=== PATIENT | male | born 1960 | race Caucasian/White ===

== ENCOUNTER → 2017-05-06 | Outpatient (CLI) | payer BC, OTHER ==
[2017-05-06 08:00] LABS: ABSOLUTE EOSINOPHILS # (AUTO) 0.2 10^3/uL (0.0-0.6); ABSOLUTE LYMPHOCYTES (AUTO) 1.1 10^3/uL (0.5-4.7); ABSOLUTE MONOCYTES (AUTO) 1.1 10^3/uL (0.1-1.4); ABSOLUTE NEUT (AUTO) 4.8 10^3/uL (1.7-8.2); BASOPHILS % (AUTO) 0.6 % (0-2); EOSINOPHILS % (AUTO) 2.2 % (0-6); HEMATOCRIT 46.5 % (37.9-51.0); HEMOGLOBIN 16.1 g/dL (13.5-17.0); HGB HCT DIFFERENCE 1.8; LYMPHOCYTES % (AUTO) 15.6 % (13-45); MEAN CORPUSCULAR HEMOGLOBIN 31.5 pg (27.0-33.4); MEAN CORPUSCULAR HGB CONC 34.6 g/dL (32.0-36.0); MEAN CORPUSCULAR VOLUME 91 fl (80-97); MONOCYTES % (AUTO) 15.3 % (3-13); RED BLOOD COUNT 5.11 10^6/uL (4.35-5.55); RED CELL DISTRIBUTION WIDTH 12.8 % (11.5-14.0); SEGMENTED NEUTROPHILS % (AUTO) 66.3 % (42-78); WHITE BLOOD COUNT 7.2 10^3/uL (4.0-10.5)
[2017-05-06 08:31] LABS: ALANINE AMINOTRANSFERASE 65 U/L (21-72); ALBUMIN 4.5 g/dL (3.5-5.0); ALKALINE PHOSPHATASE 44 U/L (38-126); ANION GAP 13 (5-19); ASPARTATE AMINO TRANSFERASE 33 U/L (17-59); BILIRUBIN,DIRECT 0.4 mg/dL (0.0-0.4); BILIRUBIN,TOTAL 1.1 mg/dL (0.2-1.3); BLOOD UREA NITROGEN 17 mg/dL (7-20); CALCIUM 9.3 mg/dL (8.4-10.2); CARBON DIOXIDE 28 mmol/L (22-30); CHLORIDE 105 mmol/L (98-107); CHOLESTEROL 210.25 mg/dL (0-200); CREATININE RESULT 1.03 mg/dL (0.52-1.25); Direct HDL 46 mg/dL (>40); GLUCOSE 97 mg/dL (75-110); POTASSIUM 4.7 mmol/L (3.6-5.0); SODIUM 145.9 mmol/L (137-145); TOTAL PROTEIN 6.9 g/dL (6.3-8.2); TRIGLYCERIDES 117 mg/dL (<150)
[2017-05-06 08:43] LABS: DIRECT LDL 155 mg/dL (<100)
== END ==
LOC: OD 07:15
PROVIDERS: ATTEND Internal Medicine
DX: Z00.00 Encounter for general adult medical examination without abnormal findings (principal); E78.5 Hyperlipidemia, unspecified; R53.83 Other fatigue
CPT/HCPCS: 36415; 80053; 80061; 84153; 84402; 84403; 84443; 85025

== ENCOUNTER → 2017-11-04 | Outpatient (CLI) | payer BC ==
[2017-11-04 08:40] LABS: ALANINE AMINOTRANSFERASE 73 U/L (21-72); ALBUMIN 4.7 g/dL (3.5-5.0); ALKALINE PHOSPHATASE 35 U/L (38-126); ASPARTATE AMINO TRANSFERASE 38 U/L (17-59); BILIRUBIN,DIRECT 0.4 mg/dL (0.0-0.4); BILIRUBIN,TOTAL 1.1 mg/dL (0.2-1.3); CHOLESTEROL 168.46 mg/dL (0-200); TOTAL PROTEIN 7.1 g/dL (6.3-8.2); TRIGLYCERIDES 120 mg/dL (<150)
[2017-11-04 08:53] LABS: DIRECT LDL 102 mg/dL (<100)
[2017-11-06 13:47] LABS: TESTOSTERONE FREE (DIRECT) 9.1 pg/mL (7.2-24.0)
== END ==
LOC: OD 07:05
PROVIDERS: ATTEND Internal Medicine
DX: E78.5 Hyperlipidemia, unspecified (principal); E29.1 Testicular hypofunction; G47.33 Obstructive sleep apnea (adult) (pediatric); N31.9 Neuromuscular dysfunction of bladder, unspecified
CPT/HCPCS: 36415; 80061; 80076; 84402; 84403

== ENCOUNTER → 2018-01-07 | Outpatient (CLI) | payer BC | LOC: OD 07:08 | PROVIDERS: ATTEND Internal Medicine | DX: E29.1 Testicular hypofunction (principal) | CPT/HCPCS: 36415; 84403 ==

== ENCOUNTER → 2018-03-18 | Outpatient (CLI) | payer BC | LOC: OD 07:06 | PROVIDERS: ATTEND Internal Medicine | DX: E03.9 Hypothyroidism, unspecified (principal) | CPT/HCPCS: 36415; 84403 ==

== ENCOUNTER → 2018-08-09 | Outpatient (CLI) | payer BC ==
[2018-08-09 08:21] LABS: ABSOLUTE EOSINOPHILS # (AUTO) 0.2 10^3/uL (0.0-0.6); ABSOLUTE LYMPHOCYTES (AUTO) 1.4 10^3/uL (0.5-4.7); ABSOLUTE MONOCYTES (AUTO) 0.6 10^3/uL (0.1-1.4); ABSOLUTE NEUT (AUTO) 4.9 10^3/uL (1.7-8.2); BASOPHILS % (AUTO) 0.5 % (0-2); HEMOGLOBIN 16.7 g/dL (13.5-17.0); LYMPHOCYTES % (AUTO) 19.8 % (13-45); MEAN CORPUSCULAR HEMOGLOBIN 32.3 pg (27.0-33.4); MEAN CORPUSCULAR HGB CONC 34.7 g/dL (32.0-36.0); MEAN CORPUSCULAR VOLUME 93 fl (80-97); MONOCYTES % (AUTO) 8.1 % (3-13); PLATELET COUNT 233 10^3/uL (150-450); RED BLOOD COUNT 5.16 10^6/uL (4.35-5.55); SEGMENTED NEUTROPHILS % (AUTO) 68.6 % (42-78); TOTAL CELLS COUNTED % (AUTO) 100 %; WHITE BLOOD COUNT 7.1 10^3/uL (4.0-10.5)
[2018-08-09 08:41] LABS: ALANINE AMINOTRANSFERASE 70 U/L (21-72); ALBUMIN 4.5 g/dL (3.5-5.0); ALKALINE PHOSPHATASE 40 U/L (38-126); ANION GAP 8 (5-19); ASPARTATE AMINO TRANSFERASE 33 U/L (17-59); BILIRUBIN,DIRECT 0.2 mg/dL (0.0-0.4); BILIRUBIN,TOTAL 0.8 mg/dL (0.2-1.3); BLOOD UREA NITROGEN 21 mg/dL (7-20); CARBON DIOXIDE 29 mmol/L (22-30); CHLORIDE 107 mmol/L (98-107); GLUCOSE 107 mg/dL (75-110); POTASSIUM 4.7 mmol/L (3.6-5.0); SODIUM 143.9 mmol/L (137-145); TRIGLYCERIDES 131 mg/dL (<150)
[2018-08-09 08:52] LABS: DIRECT LDL 119 mg/dL (<100)
== END ==
LOC: OD 07:03
PROVIDERS: ATTEND Internal Medicine
DX: R53.83 Other fatigue (principal); E29.1 Testicular hypofunction; G47.33 Obstructive sleep apnea (adult) (pediatric); E78.5 Hyperlipidemia, unspecified
CPT/HCPCS: 36415; 80053; 80061; 84153; 84403; 84443; 85025

== ENCOUNTER → 2018-09-16 | Outpatient (CLI) | payer BC | LOC: OD 07:05 | PROVIDERS: ATTEND Internal Medicine | DX: E03.9 Hypothyroidism, unspecified (principal) | CPT/HCPCS: 36415; 84443 ==

== ENCOUNTER → 2019-02-08 | Outpatient (CLI) | payer BC ==
[2019-02-08 08:19] LABS: ABSOLUTE EOSINOPHILS # (AUTO) 0.2 10^3/uL (0.0-0.6); ABSOLUTE LYMPHOCYTES (AUTO) 1.4 10^3/uL (0.5-4.7); ABSOLUTE MONOCYTES (AUTO) 0.6 10^3/uL (0.1-1.4); ABSOLUTE NEUT (AUTO) 5.4 10^3/uL (1.7-8.2); BASOPHILS % (AUTO) 0.4 % (0-2); EOSINOPHILS % (AUTO) 3.1 % (0-6); HEMATOCRIT 47.2 % (37.9-51.0); HEMOGLOBIN 16.2 g/dL (13.5-17.0); LYMPHOCYTES % (AUTO) 18.1 % (13-45); MEAN CORPUSCULAR HEMOGLOBIN 31.4 pg (27.0-33.4); MEAN CORPUSCULAR HGB CONC 34.2 g/dL (32.0-36.0); MEAN CORPUSCULAR VOLUME 92 fl (80-97); PLATELET COUNT 219 10^3/uL (150-450); RED BLOOD COUNT 5.14 10^6/uL (4.35-5.55); RED CELL DISTRIBUTION WIDTH 12.7 % (11.5-14.0); SEGMENTED NEUTROPHILS % (AUTO) 70.4 % (42-78); TOTAL CELLS COUNTED % (AUTO) 100 %; WHITE BLOOD COUNT 7.6 10^3/uL (4.0-10.5)
[2019-02-08 08:42] LABS: ALBUMIN 4.3 g/dL (3.5-5.0); ALKALINE PHOSPHATASE 37 U/L (38-126); ANION GAP 8 (5-19); ASPARTATE AMINO TRANSFERASE 35 U/L (17-59); BILIRUBIN,DIRECT 0.3 mg/dL (0.0-0.4); BLOOD UREA NITROGEN 21 mg/dL (7-20); CALCIUM 9.2 mg/dL (8.4-10.2); CARBON DIOXIDE 29 mmol/L (22-30); CHLORIDE 104 mmol/L (98-107); CHOLESTEROL 206.92 mg/dL (0-200); GLUCOSE 97 mg/dL (75-110); POTASSIUM 4.6 mmol/L (3.6-5.0); TOTAL PROTEIN 6.9 g/dL (6.3-8.2); TRIGLYCERIDES 147 mg/dL (<150)
[2019-02-08 08:59] LABS: DIRECT LDL 164 mg/dL (<100)
== END ==
LOC: OD 07:09
PROVIDERS: ATTEND Internal Medicine
DX: E29.1 Testicular hypofunction (principal); E03.9 Hypothyroidism, unspecified
CPT/HCPCS: 36415; 80053; 80061; 84443; 85025

== ENCOUNTER → 2019-05-07 | Outpatient (CLI) | payer BC ==
--- NOTE | 2019-05-07 12:34 | RADIOLOGY REPORT (SQ) ---
EXAM DESCRIPTION: MRI CERVICAL SPINE WITHOUT COMPLETED DATE/TIME: 05/07/2019 8:51 am REASON FOR STUDY: (M54.12)RADICULOPATHY, CERVICAL REGION M54.12 RADICULOPATHY, CERVICAL REGION M50. 20 OTHER CERVICAL DISC DISPLACEMENT, UNSP CERVICAL REGIO COMPARISON: None. TECHNIQUE: Sagittal and Axial imaging includes T1, T2, STIR and gradient echo sequences. LIMITATIONS: None. FINDINGS: ALIGNMENT: Normal. VERTEBRAE: Very subtle grade scratch a very subtle anterolisthesis at C5-6. BONE MARROW: Normal. No marrow replacement or reactive changes. DISCS: Variable signal and height loss with disc osteophyte complexes at C3-4, C5-6 and C6-7 particul andrew. HARDWARE: None in the spine. CORD AND BASE OF BRAIN: Normal in size and signal intensity. SOFT TISSUES: No soft tissue masses. C1-C2: No significant spinal stenosis. C2-C3: No significant spinal stenosis or exit foraminal stenosis. C3-C4: Broad left paracentral disc hernia with associated left uncovertebral spurring. Effacement re gional CSF space but no mass effect on the cord. Marked left foraminal stenosis. C4-C5: Facet arthropathy. No high-grade central stenosis. Mild right and at least moderate left for aminal stenosis. C5-C6: Disc osteophyte complex with cord contact. Very slight flattening. Prominent uncovertebral s purs with bilateral foraminal stenosis. This looks at least moderate on the right and moderate -comfort ed on the left. C6-C7: Broad left disc osteophyte complex without mass effect on the cord. Moderate -marked left for aminal stenosis. C7-T1: No significant spinal stenosis or exit foraminal stenosis. UPPER THORACIC: Incompletely imaged. No significant spinal stenosis or exit foraminal stenosis. OTHER: No other significant finding. IMPRESSION: 1. Cervical spondylosis. Predominantly left-sided foraminal stenosis as above. Changes look most pr onounced at C5-6, with there is minimal listhesis and minimal cord flattening without high-grade sten osis or impingement. TECHNICAL DOCUMENTATION: JOB ID: [id number] [employer]- All Rights Reserved Reading location - IP/workstation name: [email or web address]
== END ==
LOC: RAD 08:12
PROVIDERS: ATTEND Internal Medicine
DX: M54.12 Radiculopathy, cervical region (principal); M50.20 Other cervical disc displacement, unspecified cervical region
CPT/HCPCS: 72141

== ENCOUNTER → 2019-06-29 | Outpatient (CLI) | payer BC ==
--- NOTE | 2019-06-29 16:30 | RADIOLOGY REPORT (SQ) ---
EXAM DESCRIPTION: CERV SP 4 OR 5 VIEWS COMPLETED DATE/TIME: 06/29/2019 3:31 pm REASON FOR STUDY: M50.10 CERVICAL DISC DISORDER W RADICULOPATHY, UNSP CERVICAL REGION M50.10 CERVIC AL DISC DISORDER W RADICULOPATHY, UNSP CERVICAL COMPARISON: None. NUMBER OF VIEWS: Five views. TECHNIQUE: AP, lateral, obliques and odontoid radiographic images acquired of the cervical spine. LIMITATIONS: None. FINDINGS: MINERALIZATION: Normal. ALIGNMENT: Grade 1 anterolisthesis of C5 relative to C6. There is no atlantoaxial dissociation. VERTEBRAE: The cervical vertebral body heights are preserved. There is no fracture. DISCS: The C5-C6 and C6-C7 intervertebral disc spaces are narrowed. FORAMINA: Osteophytic foraminal stenosis bilaterally at C5-C6 due to a combination of facet joint art hropathy and uncovertebral hypertrophy. LATERAL AND POSTERIOR ELEMENTS: Intact. HARDWARE: None in the spine. SOFT TISSUES: No abnormality. OTHER: No other finding. IMPRESSION: Degenerative spondylosis and facet arthropathy of the cervical spine. TECHNICAL DOCUMENTATION: JOB ID: [id number]- All Rights Reserved Reading location - IP/workstation name: [email or web address]
== END ==
LOC: RAD 15:14
PROVIDERS: ATTEND Orthopaedic Surgery
DX: M50.10 Cervical disc disorder with radiculopathy, unspecified cervical region (principal); M47.892 Other spondylosis, cervical region
CPT/HCPCS: 72050

== ENCOUNTER → 2020-02-07 | Outpatient (CLI) | payer BC ==
[2020-02-07 08:18] LABS: ABSOLUTE EOSINOPHILS # (AUTO) 0.2 10^3/uL (0.0-0.6); ABSOLUTE LYMPHOCYTES (AUTO) 1.4 10^3/uL (0.5-4.7); ABSOLUTE MONOCYTES (AUTO) 0.8 10^3/uL (0.1-1.4); ABSOLUTE NEUT (AUTO) 5.2 10^3/uL (1.7-8.2); BASOPHILS % (AUTO) 0.5 % (0-2); EOSINOPHILS % (AUTO) 2.3 % (0-6); HEMATOCRIT 49.2 % (37.9-51.0); HEMOGLOBIN 16.8 g/dL (13.5-17.0); LYMPHOCYTES % (AUTO) 18.1 % (13-45); MEAN CORPUSCULAR HGB CONC 34.2 g/dL (32.0-36.0); MEAN CORPUSCULAR VOLUME 94 fl (80-97); MONOCYTES % (AUTO) 11.1 % (3-13); PLATELET COUNT 238 10^3/uL (150-450); RED BLOOD COUNT 5.26 10^6/uL (4.35-5.55); TOTAL CELLS COUNTED % (AUTO) 100 %; WHITE BLOOD COUNT 7.6 10^3/uL (4.0-10.5)
[2020-02-07 08:27] LABS: ALBUMIN 4.4 g/dL (3.5-5.0); ALKALINE PHOSPHATASE 38 U/L (38-126); ANION GAP 6 (5-19); ASPARTATE AMINO TRANSFERASE 35 U/L (17-59); BILIRUBIN,TOTAL 1.2 mg/dL (0.2-1.3); BLOOD UREA NITROGEN 18 mg/dL (7-20); CALCIUM 9.3 mg/dL (8.4-10.2); CARBON DIOXIDE 29 mmol/L (22-30); CHLORIDE 106 mmol/L (98-107); GLUCOSE 100 mg/dL (75-110); POTASSIUM 4.8 mmol/L (3.6-5.0); TRIGLYCERIDES 129 mg/dL (<150)
[2020-02-07 08:38] LABS: DIRECT LDL 98 mg/dL (<100)
== END ==
LOC: OD 07:06
PROVIDERS: ATTEND Internal Medicine
DX: Z00.00 Encounter for general adult medical examination without abnormal findings (principal)
CPT/HCPCS: 36415; 80053; 80061; 84153; 84443; 85025

== ENCOUNTER → 2020-02-24 | Outpatient (CLI) | payer BC | LOC: OD 07:03 | PROVIDERS: ATTEND Family Medicine | DX: M15.0 Primary generalized (osteo)arthritis (principal); E83.50 Unspecified disorder of calcium metabolism | CPT/HCPCS: 36415; 82306; 85652; 86038; 86431 ==

== ENCOUNTER → 2020-06-20 | Outpatient (CLI) | payer BC ==
[~2020-06-20] MED LIST: COVID-19 VACCINE (PFIZER)/PF 30 MCG/0.3 ML VIAL IM ONE; EPINEPHRINE INJ/PF 1 MG/1 ML AMPULE IM PRN
== END ==
LOC: EMPHEALTH 08:14
PROVIDERS: ATTEND Internal Medicine
DX: Z23 Encounter for immunization (principal)
CPT/HCPCS: 91300

== ENCOUNTER → 2020-07-12 | Outpatient (CLI) | payer BC ==
--- OUTSIDE RECORDS SUMMARY | 2020-07-12 07:40 | XMS REPORT ---
:1960 Author Organization [facility] Address [facility] [address] [place] [address] Care Team Providers Name Role Phone Unavailable Unavailable Unavailable Allergies, Adverse Reactions, Alerts This patient has no known allergies or adverse reactions. Medications Ordered Filled Start Stop Current Ordering Indication Dosage Frequency Signature Comments Components Medication Medication Date Date Medication? Clinician (SIG) Name Name cyclobenzap No 1 Q8H cyclobenza rine 10 mg rory 10 tablet Take mg tablet 1 tablet Take 1 every 8 tablet hours by every 8 oral route hours by as needed. oral route as needed. diclofenac No 1 BID diclofenac sodium 75 sodium 75 mg mg tablet,martine tablet,del yed release ayed Take 1 release tablet Take 1 twice a day tablet by oral twice a route. day by oral route. Tylenol No 2 Q6H Tylenol Extra Extra Strength Strength 500 mg 500 mg tablet Take tablet 2 tablets Take 2 every 6 tablets hours by every 6 oral route. hours by oral route. atorvastati No atorvastat n 20 mg in 20 mg tablet qd tablet qd finasteride No finasterid 5 mg tablet e 5 mg qd tablet qd testosteron No testostero e 20.25 ne 20.25 mg/1.25 mg/1.25 gram (1.62 gram (1.62 %) %) transdermal transderma gel pump qd l gel pump qd gabapentin No 1capsul Q1D gabapentin 300 mg e(s) 300 mg capsule capsule Take 1 Take 1 capsule capsule every day every day by oral by oral route at route at bedtime for bedtime 30 days. for 30 days. ketorolac No 1 Q6H ketorolac 10 mg 10 mg tablet Take tablet 1 tablet Take 1 every 6 tablet hours by every 6 oral route hours by with meals oral route for 5 days. with meals for 5 days. tamsulosin No tamsulosin 0.4 mg 0.4 mg capsule capsule Problems Condition Condition Condition Status Onset Resolution Last Treatin g Comments Name Details Category Date Date Treatment Clinician Date Abnormal Abnormal Problem Active posture Posture 1-29 00:00: 00 Paresthesia Paresthesia Problem Active of upper of Upper -29 limb Limb 00:00: 00 Cervical Cervical Problem Active disc Disc 1-08 prolapse Prolapse 00:00: with with 00 radiculopat Radiculopat hy hy Degeneratio Degeneratio Problem Active n of n of 1-08 cervical Cervical 00:00: interverteb Interverteb 00 ral disc ral Disc Spinal Spinal Problem Active stenosis in Stenosis in 1-08 cervical Cervical 00:00: region Region 00 Neck pain Neck Pain Problem Active 1-08 00:00: 00 Hypogonadis Hypogonadis Problem Active m m Hypercholes Hypercholes Problem Active terolemia terolemia Neurogenic Neurogenic Problem Active bladder Bladder Benign Benign Problem Active prostatic Prostatic hyperplasia Hyperplasia Osteoarthri Osteoarthri Problem Active tis tis Pain in Pain in Problem Active cervical Cervical spine Spine Cervical Cervical Problem Active radiculopat Radiculopat hy hy Sciatica Sciatica Problem Active Sleep apnea Sleep Apnea Problem Active Procedures Procedure Date / Time Performed Performing Clinician Joanna e epidural steroid injection, 2019-12-01 00:00:00 cervical (PROC) epidural steroid injection, 2019-08-30 00:00:00 cervical (PROC) epidural steroid injection, 2019-08-01 00:00:00 cervical (PROC) XR, cervical spine, 4 or 5 view 2019-06-29 00:00:00 Cystoscopy Vasectomy Appendectomy Results This patient has no known results. Assessments Condition Name Status Diagnosis Date Treating Clinici an Neck pain Active 2020-02-06 10:06:58 Chronic pain syndrome Active 2020-02-06 10:11:59 Pain in cervical spine Active 2020-02-06 10:11:59 Cervical radiculopathy Active 2020-02-06 10:11:59 Degeneration of cervical intervertebral Active 10:11:59 disc Spinal stenosis in cervical region Active 2020-02-06 10 :11:59 Chronic pain syndrome Active 2020-01-05 13:29:32 Pain in cervical spine Active 2020-01-05 13:29:32 Cervical radiculopathy Active 2020-01-05 13:29:32 Degeneration of cervical intervertebral Active 13:29:32 disc Neck pain Active 2020-01-05 13:29:32 Spinal stenosis in cervical region Active 2020-01-05 13 :29:32 Chronic pain syndrome Active 2019-12-01 15:45:48 Pain in cervical spine Active 2019-12-01 15:45:48 Cervical radiculopathy Active 2019-12-01 15:45:48 Degeneration of cervical intervertebral Active 15:45:48 disc Neck pain Active 2019-12-01 15:45:48 Spinal stenosis in cervical region Active 2019-12-01 15 :45:48 Pain in cervical spine Active 2019-10-05 11:07:52 Osteoarthritis Active 2019-10-05 11:07:52 Abnormal posture Active 2019-10-05 11:07:54 Cervical radiculopathy Active 2019-10-05 11:07:54 Degeneration of cervical intervertebral Active 11:07:55 disc Neck pain Active 2019-10-05 11:07:57 Spinal stenosis in cervical region Active 2019-10-05 11 :07:57 Paresthesia of upper limb Active 2019-10-05 11:07:59 Paresthesia of upper limb Active 2019-10-05 11:07:59 Cervical disc prolapse with Active 2019-10-05 11:07:49 radiculopathy Pain in cervical spine Active 2019-10-05 11:07:52 Osteoarthritis Active 2019-10-05 11:07:52 Abnormal posture Active 2019-10-05 11:07:54 Cervical radiculopathy Active 2019-10-05 11:07:54 Degeneration of cervical intervertebral Active 11:07:55 disc Neck pain Active 2019-10-05 11:07:57 Spinal stenosis in cervical region Active 2019-10-05 11 :07:57 Cervical disc prolapse with Active 2019-10-05 11:07:49 radiculopathy Cervical radiculopathy Active 2019-09-08 07:22:39 Neck pain Active 2019-09-08 07:22:39 Paresthesia of upper limb Active 2019-09-08 07:22:39 Abnormal posture Active 2019-09-08 07:22:39 Cervical radiculopathy Active 2019-09-08 07:22:39 Neck pain Active 2019-09-08 07:22:39 Paresthesia of upper limb Active 2019-09-08 07:22:39 Abnormal posture Active 2019-09-08 07:22:39 Cervical radiculopathy Active 2019-09-06 07:09:16 Neck pain Active 2019-09-06 07:09:16 Paresthesia of upper limb Active 2019-09-06 07:09:16 Abnormal posture Active 2019-09-06 07:09:16 Cervical radiculopathy Active 2019-09-06 07:09:16 Neck pain Active 2019-09-06 07:09:16 Paresthesia of upper limb Active 2019-09-06 07:09:16 Abnormal posture Active 2019-09-06 07:09:16 Cervical radiculopathy Active 2019-09-01 07:07:26 Neck pain Active 2019-09-01 07:07:26 Paresthesia of upper limb Active 2019-09-01 07:07:26 Abnormal posture Active 2019-09-01 07:07:26 Cervical radiculopathy Active 2019-08-30 07:08:50 Neck pain Active 2019-08-30 07:08:50 Paresthesia of upper limb Active 2019-08-30 07:08:50 Abnormal posture Active 2019-08-30 07:08:51 Chronic pain syndrome Active 2019-08-30 14:57:25 Pain in cervical spine Active 2019-08-30 14:57:25 Cervical radiculopathy Active 2019-08-30 07:08:50 Degeneration of cervical intervertebral Active 14:57:25 disc Neck pain Active 2019-08-30 07:08:50 Spinal stenosis in cervical region Active 2019-08-30 14 :57:25 Paresthesia of upper limb Active 2019-08-30 07:08:50 Abnormal posture Active 2019-08-30 07:08:51 Chronic pain syndrome Active 2019-08-30 14:57:25 Pain in cervical spine Active 2019-08-30 14:57:25 Degeneration of cervical intervertebral Active 14:57:25 disc Spinal stenosis in cervical region Active 2019-08-30 14 :57:25 Cervical radiculopathy Active 2019-08-25 07:37:47 Neck pain Active 2019-08-25 07:37:47 Paresthesia of upper limb Active 2019-08-25 07:37:47 Abnormal posture Active 2019-08-25 07:37:47 Cervical radiculopathy Active 2019-08-25 07:37:47 Neck pain Active 2019-08-25 07:37:47 Paresthesia of upper limb Active 2019-08-25 07:37:47 Abnormal posture Active 2019-08-25 07:37:47 Cervical radiculopathy Active 2019-08-23 07:13:20 Neck pain Active 2019-08-23 07:13:20 Abnormal posture Active 2019-08-23 07:13:20 Paresthesia of upper limb Active 2019-08-23 07:13:20 Cervical radiculopathy Active 2019-08-23 07:13:20 Neck pain Active 2019-08-23 07:13:20 Abnormal posture Active 2019-08-23 07:13:20 Paresthesia of upper limb Active 2019-08-23 07:13:20 Neck pain Active 2019-08-18 07:25:01 Cervical radiculopathy Active 2019-08-18 07:25:01 Abnormal posture Active 2019-08-18 07:25:01 Paresthesia of upper limb Active 2019-08-18 07:25:01 Neck pain Active 2019-08-18 07:25:01 Cervical radiculopathy Active 2019-08-18 07:25:01 Abnormal posture Active 2019-08-18 07:25:01 Paresthesia of upper limb Active 2019-08-18 07:25:01 Neck pain Active 2019-08-16 07:16:29 Cervical radiculopathy Active 2019-08-16 07:16:29 Abnormal posture Active 2019-08-16 07:16:29 Paresthesia of upper limb Active 2019-08-16 07:16:29 Neck pain Active 2019-08-16 07:16:29 Cervical radiculopathy Active 2019-08-16 07:16:29 Abnormal posture Active 2019-08-16 07:16:29 Paresthesia of upper limb Active 2019-08-16 07:16:29 Neck pain Active 2019-08-11 07:35:53 Cervical radiculopathy Active 2019-08-11 07:35:53 Abnormal posture Active 2019-08-11 07:35:53 Paresthesia of upper limb Active 2019-08-11 07:35:53 Neck pain Active 2019-08-11 07:35:53 Cervical radiculopathy Active 2019-08-11 07:35:53 Abnormal posture Active 2019-08-11 07:35:53 Paresthesia of upper limb Active 2019-08-11 07:35:53 Neck pain Active 2019-08-09 07:52:53 Cervical radiculopathy Active 2019-08-09 07:52:53 Abnormal posture Active 2019-08-09 07:52:53 Paresthesia of upper limb Active 2019-08-09 07:52:53 Neck pain Active 2019-08-09 07:52:53 Cervical radiculopathy Active 2019-08-09 07:52:53 Abnormal posture Active 2019-08-09 07:52:53 Paresthesia of upper limb Active 2019-08-09 07:52:53 Neck pain Active 2019-08-04 07:23:08 Cervical radiculopathy Active 2019-08-04 07:23:08 Abnormal posture Active 2019-08-04 07:23:08 Paresthesia of upper limb Active 2019-08-04 07:23:08 Neck pain Active 2019-08-04 07:23:08 Cervical radiculopathy Active 2019-08-04 07:23:08 Abnormal posture Active 2019-08-04 07:23:08 Paresthesia of upper limb Active 2019-08-04 07:23:08 Neck pain Active 2019-08-02 07:46:09 Cervical radiculopathy Active 2019-08-02 07:46:09 Abnormal posture Active 2019-08-02 07:46:09 Paresthesia of upper limb Active 2019-08-02 07:46:09 Neck pain Active 2019-08-02 07:46:09 Cervical radiculopathy Active 2019-08-02 07:46:09 Abnormal posture Active 2019-08-02 07:46:09 Paresthesia of upper limb Active 2019-08-02 07:46:09 Chronic pain syndrome Active 2019-08-01 09:23:38 Pain in cervical spine Active 2019-08-01 09:05:29 Cervical radiculopathy Active 2019-08-01 09:05:29 Degeneration of cervical intervertebral Active 09:05:29 disc Neck pain Active 2019-08-01 09:05:29 Spinal stenosis in cervical region Active 2019-08-01 09 :05:29 Chronic pain syndrome Active 2019-08-01 09:23:38 Pain in cervical spine Active 2019-08-01 09:05:29 Cervical radiculopathy Active 2019-08-01 09:05:29 Degeneration of cervical intervertebral Active 09:05:29 disc Neck pain Active 2019-08-01 09:05:29 Spinal stenosis in cervical region Active 2019-08-01 09 :05:29 Neck pain Active 2019-07-28 07:05:12 Cervical radiculopathy Active 2019-07-28 07:05:12 Abnormal posture Active 2019-07-28 07:05:12 Paresthesia of upper limb Active 2019-07-28 07:05:12 Neck pain Active 2019-07-28 07:05:12 Cervical radiculopathy Active 2019-07-28 07:05:12 Abnormal posture Active 2019-07-28 07:05:12 Paresthesia of upper limb Active 2019-07-28 07:05:12 Neck pain Active 2019-07-26 07:11:08 Cervical radiculopathy Active 2019-07-26 07:11:08 Abnormal posture Active 2019-07-26 07:11:08 Paresthesia of upper limb Active 2019-07-26 07:11:08 Neck pain Active 2019-07-26 07:11:08 Cervical radiculopathy Active 2019-07-26 07:11:08 Abnormal posture Active 2019-07-26 07:11:08 Paresthesia of upper limb Active 2019-07-26 07:11:08 Cervical radiculopathy Active 2019-07-20 18:31:31 Neck pain Active 2019-07-20 18:31:33 Abnormal posture Active 2019-07-20 18:32:42 Paresthesia of upper limb Active 2019-07-20 18:32:54 Cervical radiculopathy Active 2019-07-20 18:31:31 Neck pain Active 2019-07-20 18:31:33 Abnormal posture Active 2019-07-20 18:32:42 Paresthesia of upper limb Active 2019-07-20 18:32:54 Pain in cervical spine Active 2019-06-29 13:58:49 Cervical disc prolapse with Active 2019-06-29 13:50:08 radiculopathy Degeneration of cervical intervertebral Active 13:50:08 disc Neck pain Active 2019-06-29 13:50:08 Cervical radiculopathy Active 2019-06-29 13:58:53 Spinal stenosis in cervical region Active 2019-06-29 13 :50:08 Pain in cervical spine Active 2019-06-29 13:58:49 Cervical disc prolapse with Active 2019-06-29 13:50:08 radiculopathy Degeneration of cervical intervertebral Active 13:50:08 disc Neck pain Active 2019-06-29 13:50:08 Spinal stenosis in cervical region Active 2019-06-29 13 :50:08 Cervical radiculopathy Active 2019-06-29 13:58:53 Encounters Start End Encounter Admission Attending Care Care Encounter Date/Time Date/Time Type Type Clinicians Facility Department ID 2020-02-06 2020-02-06 Pedrito Hodgest [id number] 00:00:00 00:00:00 MD Jermaine: [facility] [id number] [address], [place] [address] , Ph. 2020-01-05 2020-01-05 Pedrito Micheleret [id number] 00:00:00 00:00:00 MD Jermaine: [facility] [id number] [address], [place] [address] , Ph. 2019-12-01 2019-12-01 Pedrito Micheleret [id number] 00:00:00 00:00:00 MD Jermaine: [facility] [id number] [address], [place] [address] , Ph. 2019-10-05 2019-10-05 Ayadmissy Hodgest [place] [id number] 00:00:00 00:00:00 Evertirjairo, Surgical Surgical [id number] : [address], [place] [address] , Ph. 2019-10-05 2019-10-05 Ayad Micheleret [place] [id number] 00:00:00 00:00:00 Guirgues, Surgical Surgical [id number] MD: [address], [address], [place] [address] , Ph. 2019-09-08 2019-09-08 Pily Hodgest [id number] 00:00:00 00:00:00 Luis, [facility] Surgical 99714 PT,DPT,[facility] : [address], [place] [address] , Ph. 2019-09-08 2019-09-08 Pily Hodgest [id number] 00:00:00 00:00:00 Luis, [facility] [id number] PT,DPT,[facility] : [address], [place] [address] , Ph. 2019-09-06 2019-09-06 Pily Hodgest [id number] 00:00:00 00:00:00 Luis, [facility] [id number] PT,DPT,[facility] : [address], [place] [address] , Ph. 2019-09-06 2019-09-06 Pily Hodgest [id number] 00:00:00 00:00:00 Luis, [facility] Surgical [id number] PT,DPT,[facility] : [address], [place] [address] , Ph. 2019-09-01 2019-09-01 Pily Micheleret [id number] 00:00:00 00:00:00 Luis, [facility] 74548 PT,DPT,[facility] : [address], [place] [address] , Ph. 2019-08-30 2019-08-30 Pilybrenda Micheleret [id number] 00:00:00 00:00:00 Luis, [facility] [id number] PT,DPT,[facility] : [address], [place] [address] , Ph. 2019-08-30 2019-08-30 Pily Micheleret [id number] 00:00:00 00:00:00 Luis, Surgical Surgical 11656 PT,DPT,[facility] : [address], [place] [address] , Ph. 2019-08-25 2019-08-25 Pilybrenda Micheleret [id number] 00:00:00 00:00:00 Luis, [facility] Surgical [id number] PT,DPT,[facility] : [address], [place] [address] , Ph. 2019-08-25 2019-08-25 Pilybrenda Micheleret [id number] 00:00:00 00:00:00 Luis, Surgical Surgical [id number] PT,DPT,[facility] : [address], [place] [address] , Ph. 2019-08-23 2019-08-23 Pilybrenda Micheleret [id number] 00:00:00 00:00:00 Luis, [facility] Surgical 65415 PT,DPT,[facility] : [address], [place] [address] , Ph. 2019-08-23 2019-08-23 Pilybrenda Hodgest [place] [id number] 00:00:00 00:00:00 Luis, Surgical Surgical [id number] PT,DPT,[facility] : [address], [place] [address] , Ph. 2019-08-18 2019-08-18 Pily [place] [id number] 00:00:00 00:00:00 Luis, Surgical Surgical [id number] PT,DPT,[facility] : [address], [place] [address] , Ph. 2019-08-18 2019-08-18 Pilybrenda Hodgest [place] [id number] 00:00:00 00:00:00 Luis, Surgical Surgical [id number] PT,DPT,[facility] : [address], [place] [address] , Ph. 2019-08-16 2019-08-16 Pily Micheleret [id number] 00:00:00 00:00:00 Luis, Surgical [facility] [id number] PT,DPT,[facility] : [address], [place] [address] , Ph. 2019-08-16 2019-08-16 Pilybrenda Micheleret [id number] 00:00:00 00:00:00 Luis, Surgical Surgical [id number] PT,DPT,[facility] : [address], [place] [address] , Ph. 2019-08-11 2019-08-11 Pilybrenad Micheleret [id number] 00:00:00 00:00:00 Luis, [facility] Surgical [id number] PT,DPT,[facility] : [address], [place] [address] , Ph. 2019-08-11 2019-08-11 Pilybrenda Micheleret [id number] 00:00:00 00:00:00 Luis, Surgical Surgical [id number] PT,DPT,[facility] : [address], [place] [address] , Ph. 2019-08-09 2019-08-09 Pilybrenda Micheleret [id number] 00:00:00 00:00:00 Luis, Surgical Surgical [id number] PT,DPT,[facility] : [address], [place] [address] , Ph. 2019-08-09 2019-08-09 Pilybrenda Hodgest [place] [id number] 00:00:00 00:00:00 Luis, Surgical Surgical [id number] PT,DPT,[facility] : [address], [place] [address] , Ph. 2019-08-04 2019-08-04 Pily Micheleret [id number] 00:00:00 00:00:00 Luis, Surgical Surgical [id number] PT,DPT,[facility] : [address], [place] [address] , Ph. 2019-08-04 2019-08-04 Pily Micheleret [id number] 00:00:00 00:00:00 Luis, Surgical Surgical 04453 PT,DPT,[facility] : [address], [place] [address] , Ph. 2019-08-02 2019-08-02 Pily Micheleret [id number] 00:00:00 00:00:00 Luis, [facility] Surgical [id number] PT,DPT,[facility] : [address], [place] [address] , Ph. 2019-08-02 2019-08-02 Pily Micheleret [id number] 00:00:00 00:00:00 Luis, Surgical Surgical [id number] PT,DPT,[facility] : [address], [place] [address] , Ph. 2019-08-01 2019-08-01 Pedrito Hodgest [place] [id number] 00:00:00 00:00:00 MD Jermaine: Surgical Surgical [id number] [address] [facility], [address], [place] [address] , Ph. 2019-08-01 2019-08-01 Pedritokareem MichelPhoenix [place] [id number] 00:00:00 00:00:00 MD Jermaine: Surgical Surgical [id number] [address] [facility], [address], [place] [address] , Ph. 2019-07-28 2019-07-28 Pily Hodgest [id number] 00:00:00 00:00:00 Luis, Surgical Surgical 76890 PT,DPT,[facility] : [address], [place] [address] , Ph. 2019-07-28 2019-07-28 Pily Hodgest [id number] 00:00:00 00:00:00 Luis, Surgical [facility] [id number] PT,DPT,[facility] : [address], [place] [address] , Ph. 2019-07-26 2019-07-26 Pily Micheleret [id number] 00:00:00 00:00:00 Luis, Surgical Surgical 29992 PT,DPT,[facility] : [address], [place] [address] , Ph. 2019-07-26 2019-07-26 Pily Micheleret [id number] 00:00:00 00:00:00 Luis, [facility] [id number] PT,DPT,[facility] : [address], [place] [address] , Ph. 2019-07-20 2019-07-20 Pily Micheleret [id number] 00:00:00 00:00:00 Luis, [facility] 78746 PT,DPT,[facility] : [address], [place] [address] , Ph. 2019-07-20 2019-07-20 Pily Micheleret [id number] 00:00:00 00:00:00 Luis, [facility] 55111 PT,DPT,[facility] : [address], [place] [address] , Ph. 2019-06-29 2019-06-29 Ayad Micheleret [id number] 00:00:00 00:00:00 Guirgues, Surgical Surgical 58038 : [address] [facility], [address], [place] [address] , Ph. 2019-06-29 2019-06-29 Ayad Hodgest [id number] 00:00:00 00:00:00 Guirgues, Surgical Surgical 89231 : Ev[address] [facility], [address], [place] [address] , Ph. Immunizations Ordered Immunization Filled Immunization Date Status Commen ts Refusal Reason Name Name influenza, 2019-02-21 Completed injectable, 00:00:00 quadrivalent Social History Smoking Status Start Date Stop Date Never Smoker Vital Signs Vital Name Observation Time Observation Value Comments Height 2020-02-06 00:00:00 69 [in_i] BP Diastolic 2020-01-05 00:00:00 77 mm[Hg] Height 2020-01-05 00:00:00 69 [in_i] BP Systolic 2020-01-05 00:00:00 122 mm[Hg] Height 2019-12-01 00:00:00 69 [in_i] BP Systolic 2019-12-01 00:00:00 139 mm[Hg] BP Diastolic 2019-12-01 00:00:00 91 mm[Hg] Height 2019-10-05 00:00:00 69 [in_i] BMI (Body Mass Index) 2019-10-05 00:00:00 26.6 kg/m2 Body Weight 2019-10-05 00:00:00 180 [lb_av] BP Diastolic 2019-08-30 00:00:00 82 mm[Hg] Height 2019-08-30 00:00:00 69 [in_i] BP Systolic 2019-08-30 00:00:00 136 mm[Hg] BP Diastolic 2019-08-01 00:00:00 88 mm[Hg] Height 2019-08-01 00:00:00 69 [in_i] BP Systolic 2019-08-01 00:00:00 145 mm[Hg] BP Diastolic 2019-06-29 00:00:00 80 mm[Hg] Height 2019-06-29 00:00:00 69 [in_i] BMI (Body Mass Index) 2019-06-29 00:00:00 26.6 kg/m2 BP Systolic 2019-06-29 00:00:00 128 mm[Hg] Body Weight 2019-06-29 00:00:00 180 [lb_av] Hospital Discharge Instructions 1. Neck pain 2. Chronic pain syndrome ketorolac 10 mg tablet gabapentin 300 mg capsule 3. Pain in cervical spine 4. Cervical radiculopathy 5. Degeneration of cervical intervertebral disc 6. Spinal stenosis in cervical region Discussion Note: None recorded. Patient educational handouts: No infor mation available.1. Chronic pain syndrome 2. Pain in cervical spine 3. Cervical radiculopathy 4. Degeneration of cervical intervertebral disc 5. Neck pain 6. Spinal stenosis in cervical region Discussion Note: None recorded. Patient educational handouts: No information available.1. Chronic pain syndrome 2. Pain in cervical spine 3. Cervical radiculopathy epidural steroid injection, cervical (PROC) - Series of 3: CARLOS C6-C7 #2 09/27/2019 R/S 11/25/2019 R/S 12/01/19 4. Degeneration of cervical intervertebral disc 5. Neck pain 6. Spinal stenosis in cervical region Discussion Note: None recorded. Patient educational handouts: No information available.1. Pain in cervical spine 2. Cervical disc prolapse with radiculopathy XR, cervical spine, 4 or 5 view cyclobenzaprine 10 mg tablet diclofenac sodium 75 mg tablet,delayed release Tylenol Extra Strength 500 mg tablet aspen cervical collar 3. Degeneration of cervical intervertebral disc 4. Neck pain 5. Cervical radiculopathy 6. Spinal stenosis in cervical region Discussion Note I discussed with the patient his my recommendation for nonsurgical management first but I also discussed with him the option of a 1 level anterior cervical discectomy and fusion at C6-7 if he fails conservative management or if the upper extremity symptoms worsen the only problem is he has some arthritis at C5-6 as well and so there is risk of adjacent level arthritis we discussed risks benefits and alternatives to surgery. The patient is fitted for given a rigid c-spine collar to deal with the stenosis and a significant neck pain and to reduce the need for pain medications while maintaining function. Patient educational handouts: No information available.
== END ==
LOC: EMPHEALTH 07:37
PROVIDERS: ATTEND Internal Medicine
DX: Z23 Encounter for immunization (principal)
CPT/HCPCS: 91300